=== PATIENT | female | born 1935 | race Two or more races ===

== ENCOUNTER 2020-10-03 14:56 | Emergency (ER) | payer MEDICARE, OTHER ==
[~2020-10-03] VITALS: Ht 152.4 cm; Wt 63.0 kg
[2020-10-03 16:47] VITALS: BP 139/73
== END 2020-10-03 17:14 | disposition home or self-care (01) ==
LOC: ER 14:56
DX: L02.811 Cutaneous abscess of head [any part, except face] (principal); I10 Essential (primary) hypertension; Z88.5 Allergy status to narcotic agent